=== PATIENT | male | born 1975 | race African-American/Black ===

== ENCOUNTER 2016-08-23 16:22 | Emergency (ER) | payer SELFPAY ==
[~2016-08-23] VITALS: Ht 180.3 cm; Wt 86.2 kg
[2016-08-23 16:51] VITALS: BP 165/141
[2016-08-23 17:00] VITALS: BP 154/95
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
[2016-08-23 17:02] LABS: MEAN CORPUSCULAR HEMOGLOBIN 35.2 PG (27.0-31.0); MEAN CORPUSCULAR HGB CONC 35.5 G/DL (32.0-36.0); MEAN CORPUSCULAR VOLUME 99 FL (80-99); MEAN PLATELET VOLUME 5.9 FL (6.5-10.1); PLATELET COUNT 153 K/UL (150-450); RED BLOOD COUNT 3.82 M/UL (4.70-6.10); RED CELL DISTRIBUTION WIDTH 12.4 % (11.6-14.8); WHITE BLOOD COUNT 16.8 K/UL (4.8-10.8)
[2016-08-23 17:10] VITALS: BP 171/101
[2016-08-23 17:13] LABS: INR 1.1 (0.9-1.1); PROTHROMBIN TIME 11.5 SEC (9.30-11.50)
[2016-08-23 17:38] LABS: ANION GAP 19 (5-15); CALCIUM 8.6 mg/dL (8.6-10.2); CARBON DIOXIDE 23 mEQ/L (20-30); CHLORIDE 100 mEQ/L (98-107); CREATININE 0.9 mg/dL (0.7-1.2); GLOMERULAR FILTRATION RATE > 60 mL/min (>60); HEMOLYSIS 5; SODIUM 142 mEQ/L (135-145)
[2016-08-23 17:40] LABS: BAND NEUTROPHILS % (MANUAL) 2 % (0-8); BASOPHILS % (MANUAL) 2 % (0-2); LYMPHOCYTES % (MANUAL) 12 % (20-45); NEUTROPHILS % (MANUAL) 82 % (45-75); TOTAL CELLS COUNTED 100
[2016-08-23 17:41] LABS: EOSINOPHILS % (MANUAL) 0 % (0-3); MACROCYTES 1+; PLATELET ESTIMATE ADEQUATE; PLATELET MORPHOLOGY NORMAL
--- NOTE | 2016-08-24 10:26 | Diagnostic Imaging Report ---
Indication: Chest pain Comparison: 09/01/2008 A single view chest radiograph was obtained. Findings: Cardiomediastinal appearance is within normal limits for age. Pulmonary vascularity is appropriate. The diaphragmatic contour is smooth and costophrenic angles are sharp. No pleural effusions are identified. The bones are unremarkable. Impression: No acute findings
== END 2016-08-23 17:10 | disposition short-term general hospital (02) ==
LOC: EMR 17:02
DX: S31.631A Puncture wound without foreign body of abdominal wall, left upper quadrant with penetration into peritoneal cavity, initial encounter (principal); X99.9XXA Assault by unspecified sharp object, initial encounter; Y92.9 Unspecified place or not applicable; Z88.0 Allergy status to penicillin
CPT/HCPCS: 36415; 71010; 80048; 85007; 85025; 85610; 85730; 86850; 86900; 86901; 96374

== ENCOUNTER 2017-11-06 18:03 | Emergency (ER) | payer OTHER ==
[~2017-11-06] VITALS: Ht 180.3 cm; Wt 86.2 kg
[2017-11-06 18:18] VITALS: BP 127/84
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
[2017-11-06 18:47] VITALS: BP 127/84
== END 2017-11-06 18:47 | disposition home or self-care (01) ==
LOC: EMR 18:35
DX: R22.1 Localized swelling, mass and lump, neck (principal); I10 Essential (primary) hypertension; Z88.0 Allergy status to penicillin
CPT/HCPCS: 99282